=== PATIENT | male | born 1965 | race Caucasian/White ===

== ENCOUNTER 2019-12-12 09:40 | Inpatient (IN) ==
[2019-12-12] MEDS ORDERED: Furosemide 40 MG/4 ML VIAL IVP ONE (10:04)
[2019-12-12] MEDS ORDERED: Ipratropium/Albuterol Neb 3 ML IH ONE (10:04)
[2019-12-12] MEDS ORDERED: methylPREDNISolone 125 MG/2 ML VIAL IVP ONE (10:04)
[2019-12-12 10:16] LABS: Basophils # 0.1 K/mcL (0.0-0.2); Basophils % 1.1 %; Eosinophils # 0.1 K/mcL (0.0-0.6); Eosinophils % 1.1 %; Hematocrit 43.3 % (37.5-50.1); Hemoglobin 13.9 g/dL (12.9-16.9); Immature Granulocytes % 0.3 % (0-4); Lymphocytes # 2.9 K/mcL (0.6-4.6); Lymphocytes % 40.4 %; Mean Corpuscular HGB Conc 32.1 g/dL (31.6-35.5); Mean Corpuscular Volume 93.5 fL (83.0-100.0); Mean Platelet Volume 9.3 fL (9.4-12.4); Monocytes # 1.8 K/mcL (0.0-1.3); Monocytes % 25.3 %; Neutrophils # 2.3 K/mcL (1.6-8.9); Platelet Count 291 K/mcL (140-400); Red Blood Count 4.63 M/mcL (4.19-5.50); Red Cell Distribution Width 13.5 % (11.5-14.5); Segmented Neutrophils % 31.8 %; White Blood Count 7.2 K/mcL (4.3-11.1)
[2019-12-12 10:26] LABS: ABG Base Excess 0 mEq/L (-2 to 3); ABG HCO3 24 mEq/L (21-27); ABG Oxygen Saturation 96 % (95-98); ABG PCO2 37 mmHg (35-45); ABG PH 7.42 pH Units (7.32-7.45); ABG PO2 79 mmHg (85-104); ABG TCO2 25 mEq/L (20-26)
[2019-12-12 10:31] LABS: Platelet Estimate Normal (Normal)
[2019-12-12 10:35] LABS: INR 1.3; Prothrombin Time 14.4 Seconds (9.4-12.1)
[2019-12-12 10:38] LABS: Activated Partial Thrombo Time 31.2 Seconds (26.0-36.0)
[2019-12-12 10:42] LABS: Troponin I 0.88 ng/mL (< 0.04)
[2019-12-12 10:54] LABS: Alanine Aminotransferase 17 Units/L (7-52); Albumin 3.7 g/dL (3.5-5.7); Albumin/Globulin Ratio 1.5 (1.1-2.2); Alkaline Phosphatase 78 Units/L (34-104); Aspartate Amino Transferase 14 Units/L (13-39); BUN/Creatinine Ratio 17 (6-26); Bilirubin,Direct 0.3 mg/dL (0.0-0.2); Bilirubin,Total 1.3 mg/dL (0.3-1.0); Blood Urea Nitrogen 17 mg/dL (6-20); Calcium 9.2 mg/dL (8.6-10.3); Carbon Dioxide 26 mEq/L (23-29); Chloride 105 mEq/L (98-107); Globulin 2.5 g/dL (2.4-3.5); Glucose 117 mg/dL (70-105); Osmolality,Calculated 287 (280-300); Potassium 4.5 mEq/L (3.5-5.1); Sodium 137 mEq/L (136-145); Total Protein 6.2 g/dL (6.4-8.9); eGFR For African Americans > 60 (> 60); eGFR For Non-African Americans > 60 (> 60)
[2019-12-12] MEDS ORDERED: Isovue-370 500 ML BOTTLE IVP ONE (11:05)
[2019-12-12] MEDS ORDERED: levoFLOXacin 750 MG/150 ML 750 MG/150 ML BAG IVPB ONE (11:38)
[2019-12-12] MEDS ORDERED: Aspirin 81 MG TAB.CHEW PO STA (11:59)
[2019-12-12] MEDS ORDERED: Naloxone 0.4 MG/ML INJ IVP PRN ×3 (12:47→14:24)
[2019-12-12] MEDS ORDERED: Ondansetron 4 MG/2 ML VIAL IVP PRN ×2 (13:46→14:24)
[2019-12-12] MEDS ORDERED: MOM Conc 10 ML UD.LIQ PO PRN ×2 (13:46→14:24)
[2019-12-12] MEDS ORDERED: Acetaminophen 325 MG TABLET PO PRN ×2 (13:46→14:24)
[2019-12-12] MEDS ORDERED: Ondansetron ODT 4 MG TAB.RAPDIS SL PRN ×2 (13:46→14:24)
[2019-12-12] MEDS ORDERED: Ipratropium/Albuterol Neb 3 ML IH PRN ×2 (14:02→14:24)
[2019-12-12] MEDS ORDERED: Nitroglycerin 0.4 MG TAB.SUBL SL PRN ×2 (14:04→14:24)
[2019-12-12] MEDS ORDERED: Furosemide 20 MG/2 ML VIAL IVP ONE (16:21)
[2019-12-12] MEDS: carvediloL 6.25 MG TABLET PO SCH (16:55)
[2019-12-12] MEDS: Nicotine 21 MG PATCH.TD24 TD SCH (16:55)
[2019-12-12] MEDS: MethylPREDNISolone 40 MG/ML VIAL IVP SCH ×2 (16:57→23:54)
[2019-12-12] MEDS ORDERED: carvediloL 6.25 MG TABLET PO SCH (17:00)
[2019-12-12] MEDS: Doxycycline 100 MG in 0.9 % Sodium Chloride Mini Bag 100 ML IVPB SCH (18:54)
[2019-12-12] MEDS: Ipratropium/Albuterol Neb 3 ML IH SCH (20:11)
[2019-12-12 20:26] LABS: Adenovirus Not Detected (Not Detect); Bordetella Pertussis Not Detected (Not Detect); Chlamydophila pneumoniae Not Detected (Not Detect); Coronavirus 229E Not Detected (Not Detect); Coronavirus HKU1 Not Detected (Not Detect); Coronavirus NL63 Not Detected (Not Detect); Coronavirus OC43 Not Detected (Not Detect); Human Metapneumovirus Not Detected (Not Detect); Human Rhinovirus/Enterovirus Not Detected (Not Detect); Influenza A Subtype 2009 H1 Not Detected (Not Detect); Influenza B Not Detected (Not Detect); Mycoplasma pneumoniae Not Detected (Not Detect); Parainfluenza Virus 1 Not Detected (Not Detect); Parainfluenza Virus 2 Not Detected (Not Detect); Parainfluenza Virus 3 Not Detected (Not Detect); Parainfluenza Virus 4 Not Detected (Not Detect); Respiratory Syncytial Virus Not Detected (Not Detect)
[2019-12-13] MEDS: Ipratropium/Albuterol Neb 3 ML IH SCH ×6 (00:02→20:45)
[2019-12-13] MEDS: Doxycycline 100 MG in 0.9 % Sodium Chloride Mini Bag 100 ML IVPB SCH ×2 (05:09→17:34)
[2019-12-13] MEDS: *HR* Enoxaparin 40 MG/0.4 ML SYRINGE SQ SCH (05:10)
[2019-12-13 05:31] LABS: Basophils % 0.2 %; Hemoglobin 13.7 g/dL (12.9-16.9); Immature Granulocytes % 0.7 % (0-4); Lymphocytes # 1.7 K/mcL (0.6-4.6); Lymphocytes % 16.2 %; Mean Corpuscular HGB Conc 31.9 g/dL (31.6-35.5); Mean Corpuscular Hemoglobin 29.6 pg (28.0-33.3); Mean Corpuscular Volume 92.9 fL (83.0-100.0); Mean Platelet Volume 9.6 fL (9.4-12.4); Monocytes % 9.1 %; Neutrophils # 7.7 K/mcL (1.6-8.9); Platelet Count 279 K/mcL (140-400); Red Blood Count 4.63 M/mcL (4.19-5.50); Red Cell Distribution Width 13.4 % (11.5-14.5); Segmented Neutrophils % 73.8 %; White Blood Count 10.5 K/mcL (4.3-11.1)
[2019-12-13 05:45] LABS: Bilirubin,Urine Negative (Negative); Blood,Urine Negative (Negative); Clarity,Urine Slightly Cloudy (Clear); Glucose,Urine (UA) 100 mg/dL (Normal); Ketones,Urine Negative (Negative); Leukocyte Esterase,Urine Negative (Negative); Nitrite,Urine Negative (Negative); PH,Urine 5.5 pH Units (5.0-8.0); Protein,Urine 100 mg/dL (Neg-Trace); Specific Gravity,Urine 1.025 (1.010-1.025); Urobilinogen,Urine Normal (Normal)
[2019-12-13 05:48] LABS: Alanine Aminotransferase 14 Units/L (7-52); Albumin 3.3 g/dL (3.5-5.7); Albumin/Globulin Ratio 1.4 (1.1-2.2); Alkaline Phosphatase 68 Units/L (34-104); Aspartate Amino Transferase 9 Units/L (13-39); BUN/Creatinine Ratio 18 (6-26); Bilirubin,Total 0.9 mg/dL (0.3-1.0); Blood Urea Nitrogen 19 mg/dL (6-20); Carbon Dioxide 31 mEq/L (23-29); Chloride 102 mEq/L (98-107); Globulin 2.3 g/dL (2.4-3.5); Glucose 145 mg/dL (70-105); Magnesium 1.9 mg/dL (1.6-2.6); Osmolality,Calculated 293 (280-300); Phosphorous 4.2 mg/dL (2.7-4.5); Potassium 4.3 mEq/L (3.5-5.1); Sodium 139 mEq/L (136-145); Total Protein 5.6 g/dL (6.4-8.9); eGFR For African Americans > 60 (> 60); eGFR For Non-African Americans > 60 (> 60)
[2019-12-13] MEDS ORDERED: *HR* Enoxaparin 40 MG/0.4 ML SYRINGE SQ SCH (06:00)
[2019-12-13 06:02] LABS: Color,Urine Light Yellow (Yellow)
[2019-12-13 06:04] LABS: Squamous Epithelial Cell,Urine Few per lpf (None-Few); WBC,Urine 0-3 per hpf (0-3)
[2019-12-13] MEDS ORDERED: Aspirin Enteric Coated 81 MG Tablet PO SCH (09:00)
[2019-12-13] MEDS ORDERED: levoFLOXacin 750 MG/150 ML 750 MG/150 ML BAG IVPB SCH (09:00)
[2019-12-13] MEDS ORDERED: Furosemide 20 MG/2 ML VIAL IVP SCH ×2 (09:00)
[2019-12-13] MEDS: Furosemide 20 MG/2 ML VIAL IVP SCH ×2 (09:03→15:36)
[2019-12-13] MEDS: MethylPREDNISolone 40 MG/ML VIAL IVP SCH ×3 (09:03→23:06)
[2019-12-13] MEDS: levoFLOXacin 750 MG/150 ML 750 MG/150 ML BAG IVPB SCH (09:04)
[2019-12-13] MEDS: Nicotine 21 MG PATCH.TD24 TD SCH (09:04)
[2019-12-13] MEDS: Aspirin Enteric Coated 81 MG Tablet PO SCH (09:04)
[2019-12-13] MEDS: carvediloL 6.25 MG TABLET PO SCH ×2 (09:04→17:38)
[2019-12-13 10:00] LABS: Estimated Average Glucose 126 mg/dl
[2019-12-14] MEDS: Ipratropium/Albuterol Neb 3 ML IH SCH ×4 (00:22→11:29)
[2019-12-14] MEDS: Doxycycline 100 MG in 0.9 % Sodium Chloride Mini Bag 100 ML IVPB SCH (05:33)
[2019-12-14] MEDS: *HR* Enoxaparin 40 MG/0.4 ML SYRINGE SQ SCH (05:33)
[2019-12-14 07:53] VITALS: BP 131/96
[2019-12-14 07:54] LABS: Hematocrit 42.3 % (37.5-50.1); Hemoglobin 13.7 g/dL (12.9-16.9); Mean Corpuscular HGB Conc 32.4 g/dL (31.6-35.5); Mean Corpuscular Hemoglobin 29.7 pg (28.0-33.3); Mean Corpuscular Volume 91.6 fL (83.0-100.0); Mean Platelet Volume 9.8 fL (9.4-12.4); Platelet Count 349 K/mcL (140-400); Red Blood Count 4.62 M/mcL (4.19-5.50); Red Cell Distribution Width 13.5 % (11.5-14.5); White Blood Count 18.2 K/mcL (4.3-11.1)
[2019-12-14 08:30] LABS: Alanine Aminotransferase 12 Units/L (7-52); Albumin 3.2 g/dL (3.5-5.7); Albumin/Globulin Ratio 1.5 (1.1-2.2); Alkaline Phosphatase 73 Units/L (34-104); Aspartate Amino Transferase 9 Units/L (13-39); BUN/Creatinine Ratio 21 (6-26); Bilirubin,Total 0.5 mg/dL (0.3-1.0); Blood Urea Nitrogen 20 mg/dL (6-20); Calcium 8.8 mg/dL (8.6-10.3); Carbon Dioxide 28 mEq/L (23-29); Chloride 102 mEq/L (98-107); Globulin 2.1 g/dL (2.4-3.5); Glucose 139 mg/dL (70-105); Osmolality,Calculated 287 (280-300); Potassium 3.9 mEq/L (3.5-5.1); Sodium 136 mEq/L (136-145); Total Protein 5.3 g/dL (6.4-8.9); eGFR For African Americans > 60 (> 60); eGFR For Non-African Americans > 60 (> 60)
[2019-12-14] MEDS: levoFLOXacin 750 MG/150 ML 750 MG/150 ML BAG IVPB SCH (09:23)
[2019-12-14] MEDS: Furosemide 20 MG/2 ML VIAL IVP SCH (09:24)
[2019-12-14] MEDS: MethylPREDNISolone 40 MG/ML VIAL IVP SCH (09:24)
[2019-12-14] MEDS: Nicotine 21 MG PATCH.TD24 TD SCH (09:25)
[2019-12-14] MEDS: Aspirin Enteric Coated 81 MG Tablet PO SCH (09:26)
[2019-12-14] MEDS: carvediloL 6.25 MG TABLET PO SCH (09:26)
[2019-12-14] MEDS ORDERED: Furosemide 20 MG TABLET PO SCH (17:00)
[2019-12-14] MEDS ORDERED: Doxycycline 100 MG CAPSULE PO SCH (21:00)
== END 2019-12-14 15:03 | disposition home or self-care (01) ==
LOC: EMEROOGRE 09:40 → INPGRE 13:04
PROVIDERS: ADMIT Family Medicine; ATTEND Family Medicine